=== PATIENT | female | born 1950 | race Caucasian/White ===

== ENCOUNTER 2024-10-30 05:19 | Emergency (ER) | payer MEDICARE, BC, SELFPAY ==
[2024-10-30 05:24] VITALS: BP 182/69; BMI 40.9
[2024-10-30 05:50] LABS: Hematocrit 29.1 % (37.0-47.0); Hemoglobin 9.5 g/dL (12.0-16.0); Mean Corp Hgb Conc. 32.6 g/dL (33.0-37.0); Mean Corpuscular Volume 88.4 fL (81.0-99.0); Nucleated Red Blood Cells % 0 %; Platelet Count 353 10^3/uL (130-400); Red Cell Dist. Width 13.2 % (11.5-14.5)
[2024-10-30 06:00] VITALS: BP 177/66
[2024-10-30 06:25] LABS: ALT (SGPT) 15 U/L (0-35); AST (SGOT) 18 U/L (14-36); Albumin 3.4 g/dl (3.5-5.0); Alkaline Phosphatase 69 U/L (38-126); Blood Urea Nitrogen 16 mg/dl (7-17); Calcium 9.2 mg/dl (8.4-10.2); Carbon Dioxide 33 mmol/L (22-30); Chloride 99 mmol/L (98-107); Estimated Creatinine Clearance 97 ml/min; Glucose 170 mg/dl (70-99); Potassium 3.4 mmol/L (3.5-5.1); Sodium 137 mmol/L (135-145); Total Protein 6.0 g/dl (6.3-8.2); eGFR > 60.00
[2024-10-30 06:27] LABS: Troponin I < 0.012 ng/ml
[2024-10-30 07:00] VITALS: BP 181/57
[2024-10-30 07:24] LABS: D-Dimer 2.56 ug/mlFEU (0.00-0.50)
[2024-10-30 07:48] VITALS: BP 181/67
[2024-10-30 08:34] VITALS: BP 177/60
--- NOTE | 2024-10-30 08:42 | ED.GENMED ---
History of Present Illness
General
Chief Complaint: Cardiac Symptoms
Source: patient
Time Seen by Provider: 10/30/24 06:04
History of Present Illness
History of Present Illness:
Note:
CHIEF COMPLAINT(S)
Pain in the left shoulder blade, feeling out of sync with heart rhythm.
HISTORY OF PRESENT ILLNESS
The patient is a female with a history of atrial fibrillation and cardiovascular stents placed in 2002, who presents with pain in the left shoulder blade that began the day before presentation. The patient describes the pain as constant and
associates it with mild shortness of breath. The pain persisted through the afternoon and subsided to some extent after the patient slept from approximately 10:00 PM to 3:00 AM. Although no specific activity seems to exacerbate the pain, she reports
the experience of being out of sync with her usual heart rhythm, particularly with exertion. The patient expresses concern about the risk of stroke, given her medical history. She is adherent to her anticoagulation regimen with apixaban, resuming
the regular 5 mg dosing subsequent to a brief pause for knee surgery occurring on the of this month.
ADDITIONAL HISTORY OBTAINED FROM SOURCES OTHER THAN THE PATIENT
According to external sources, it was noted that the patient does not appear to be in atrial fibrillation during this examination. Postoperatively, she was advised on using apixaban, although there was some concern about being off her blood thinner
briefly around the time of surgery.
PAST MEDICAL AND SURGICAL HISTORY
The patient has a history of atrial fibrillation, previous stent placements in 2002, and aortic stenosis. The recent surgical history includes right knee surgery conducted approximately 10 days ago with a dressing that appears well intact and no
signs of infection or excessive swelling.
CHRONIC MEDICAL CONDITIONS SIGNIFICANTLY AFFECTING CARE
- Atrial fibrillation
- Aortic stenosis
ALLERGIES
- Penicillin
- Adhesive tape
- Sulfamethoxazole-trimethoprim (Bactrim)
SOCIAL HISTORY
The patient mentions a history of weight loss contributing positively to her shortness of breath.
MEDICATIONS
Apixaban 5 mg for anticoagulation following atrial fibrillation management.
REVIEW OF SYSTEMS
Musculoskeletal:
- Pain in the left shoulder blade
Respiratory:
- Mild shortness of breath associated with pain
Cardiovascular:
- Feels out of sync with heart rhythm with exertion
PHYSICAL EXAM
General: Alert, no acute distress.
Skin: Warm, dry.
Head: Normocephalic, atraumatic.
Neck: Supple, trachea midline.
Eyes, Ears, Nose, Mouth, and Throat: Oral mucosa moist. Loud heart murmur noted.
Cardiovascular: Regular rhythm, loud heart murmur present. No peripheral edema.
Respiratory: Lungs clear to auscultation. Respirations are non-labored.
Gastrointestinal: Abdomen nondistended.
Back: Normal range of motion, Normal alignment.
Musculoskeletal: Postoperative wound at the right knee with the dressing intact, no signs of infection. Some edema noted at the surgical site compared to the left LE.
Neurological: Alert and oriented to person, place, and time, No focal neurological deficit observed.
Psychiatric: Cooperative, appropriate mood & affect.
PROBLEM LIST
Acute:
- Left shoulder blade pain with associated dyspnea
- Postoperative management following recent knee surgery
Chronic:
- Atrial fibrillation
- Aortic stenosis
PLAN
- Blood work to evaluate for possible blood clot given recent orthopedic surgery and previous brief interruption in anticoagulation.
- Imaging of the chest to assess potential cardiopulmonary causes.
- Monitor cardiac rhythm for atrial fibrillation reassurance.
- Continue current anticoagulation management with apixaban.
DIFFERENTIAL DIAGNOSIS
The Differential Diagnosis includes, in no particular order and is not limited to:
- Musculoskeletal pain
- Pulmonary embolism
- Cardiac ischemia
- Aortic dissection
- Costochondritis
- Pneumonia
- Pleural effusion
- Pericarditis
- Anxiety disorder
- Gastroesophageal reflux disease (GERD)
EKG
My independent EKG interpretation is:
- Time of EKG: Not specified
- Rhythm: Normal
- Heart Rate: 75 bpm
- Ryan: Left axis deviation
- Notable Intervals: Not specified
- Abnormalities: Nonspecific ST-T wave changes
- No Q waves, ischemic or other changes
Disposition:
SUMMARY OF ENCOUNTER
The patient is a 74-year-old female who presented with left scapular pain persisting for the last two to three days. The patient had recent total knee replacement surgery on October 20 and has resumed full-dose apixaban therapy. Laboratory studies
revealed an elevated D-dimer and a mild anemia with hemoglobin at 9.5 g/dL. The patient also has mild hypokalemia at 3.4 mEq/L, but normal renal function. Troponin levels were negative, and chest CT angiogram showed no evidence of pulmonary
embolism, although severe coronary calcifications were noted by radiology. EKG demonstrated normal sinus rhythm with nonspecific changes. Given the negative troponin and EKG findings, acute coronary syndrome was considered unlikely. The patients
anticoagulation therapy with apixaban was deemed appropriate, and she was cleared for discharge with recommendations for follow-up.
ASSESSMENT
The patient has a history of left scapular pain, which is unlikely to be acute coronary syndrome given the negative troponin and EKG findings. She is at low risk for pulmonary embolism based on the chest CT angiogram results.
PLAN
- Continue anticoagulation management with apixaban 5 mg orally twice daily.
- Address any contributing factors to scapular pain, likely musculoskeletal in origin unless other symptoms develop.
- Ensure potassium levels are managed appropriately.
- Provide reassurance regarding her cardiovascular status given current negative troponin results and no evidence of acute issues on imaging.
INDEPENDENT REVIEW OF LABS AND INTERPRETATION OF TESTS
My independent review of CBC indicates mild anemia with hemoglobin at 9.5 g/dL.
My independent review of the chemistry panel indicates mild hypokalemia at 3.4 mEq/L with normal renal function.
My independent review of the troponin is negative.
My independent chest CT angiogram interpretation shows no evidence of pulmonary embolism but notes severe coronary calcifications as reported by radiology.
My independent EKG interpretation is normal sinus rhythm with nonspecific ST-T wave changes.
PATIENT EDUCATION AND COUNSELING
The patient was educated about the likely musculoskeletal nature of her scapular pain and reassured of the normal cardiovascular assessment based on recent tests. She was advised on the importance of continued apixaban therapy and monitoring for any
new or worsening symptoms.
FOLLOW-UP INSTRUCTIONS
The patient is advised to follow up with her primary care physician or analytic programmer for ongoing management and monitoring of her condition.
MEDICATION RECONCILIATION
- Continue apixaban 5 mg orally twice daily for anticoagulation.
MEDICAL DECISION MAKING
- Complexity of Data Reviewed: Chronic conditions affecting care include atrial fibrillation and aortic stenosis. Differential diagnosis considered includes musculoskeletal pain, pulmonary embolism, cardiac ischemia, aortic dissection,
costochondritis, pneumonia, pleural effusion, pericarditis, anxiety disorder, and gastroesophageal reflux disease (GERD).
- Data:
Category 1
Lab tests reviewed: CBC indicating mild anemia, chemistry panel indicating mild hypokalemia, negative troponin.
Clinical information was obtained from an independent historian, confirming adherence to anticoagulation therapy.
Category 2
My independent interpretation of the chest CT angiogram showed no pulmonary embolism and radiology reported severe coronary calcifications. EKG interpretation showed normal sinus rhythm with nonspecific changes.
-Risk:
Consideration of Admission/Observation: Escalation of care including admission/observation was considered given the complexity and risk of the patients presenting complaint, exam findings, and her underlying comorbidities. However, ultimately I feel
the patient is safe for outpatient management with close follow-up. Reasoning: Work-up reassuring, does not reveal any acute life/organ-threatening processes, patients symptoms well-controlled upon reevaluation, reexamination is reassuring, vitals
are stable, patient agreeable with discharge, reliable for follow-up.
DIAGNOSIS
- Musculoskeletal pain (ICD-10: M79.89)
- Mild anemia (ICD-10: D64.9)
- Mild hypokalemia (ICD-10: E87.6)
- Severe coronary artery calcification (ICD-10: I25.10)
Phy Exam
Physical Exam
Physical Exam:
.
Course
Orders/Labs/Results
Orders:
Orders
10/30/24 05:36
EKG [Electrocardiogram (*1)] Urgent
Reason for Study: Palpitations
Other Reason for Exam: l scapular pain
10/30/24 05:37
EKG- Treatment ONCE
10/30/24 05:39
Complete Blood Count/With Diff Urgent
Comprehensive Metabolic Panel Urgent
Troponin I Urgent
10/30/24 06:25
DDimer [D-Dimer] Urgent
10/30/24 07:47
CT Chest PE Study Urgent
Comment:
Reason For Exam: scapular pain, recent TKR, ddimer elevated
Abnormal Lab Results
10/30/24 10/30/24
05:39 06:25
RBC 3.29 L 10^6/uL
(4.20-5.40)
Hgb 9.5 L g/dL
(12.0-16.0)
Hct 29.1 L %
(37.0-47.0)
MCHC 32.6 L g/dL
(33.0-37.0)
D-Dimer 2.56 H ug/mlFEU
(0.00-0.50)
Potassium 3.4 L mmol/L
(3.5-5.1)
Carbon Dioxide 33 H mmol/L
(22-30)
Creatinine 0.5 L mg/dL
(0.6-1.0)
Glucose 170 H mg/dl
(70-99)
Total Protein 6.0 L g/dl
(6.3-8.2)
Albumin 3.4 L g/dl
(3.5-5.0)
10/30/24 05:39
10/30/24 05:39
Vital Signs
Initial and Last Documented VS:
Initial Vital Signs
Temp Pulse Resp BP Pulse Ox
97.8 F 76 18 182/69 99
08/22/25 05:24 10/30/24 05:24 10/30/24 05:24 10/30/24 05:24 10/30/24 05:24
Last Documented Vital Signs
Temp Pulse Resp BP Pulse Ox
97.8 F 69 15 177/60 96
10/30/24 05:24 10/30/24 07:48 10/30/24 07:48 10/30/24 08:34 10/30/24 08:42
*Pulse Oximetry
SaO2: 96
Oxygen Mode of Delivery: Room air
Patient hypoxic: no
*Critical Care Note
Total Time (30-74mins, 75-104mins- exclusive of procedures): Not Applicable
ED Attending Note
-
Portions of this chart may have been created with voice recognition software.� Occasional wrong word or��sound alike� substitutions may have occurred due to the inherent limitations of voice recognition software.
Discharge Plan
Departure
Patient Disposition: Home (Routine Discharge)
Date of Disposition: 10/30/24
Time of Disposition: 08:42
Patient with high blood pressure during this ER visit?: Yes
Discharge Problem:
Back pain
Instructions: Back Pain, BLOOD PRESSURE
Prescriptions:
No Action
celecoxib [Celebrex] 200 mg Capsule
200 mg PO BID PRN (Reason: arthritis pain)
furosemide [Lasix] 40 mg Tablet
40 mg PO DAILY
nadolol 20 mg Tablet
20 mg PO DAILY
insulin aspart U-100 [Novolog U-100 Insulin aspart] 100 unit/mL Solution
10 unit SC . DIRECTED
montelukast 10 mg Tablet
10 mg PO DAILY
losartan 100 mg Tablet
100 mg PO DAILY
vitamin B complex Capsule
1 cap PO DAILY
ezetimibe-simvastatin [Vytorin 10-20] 10-20 mg Tablet
1 tab PO DAILY
insulin glargine [Lantus Solostar U-100 Insulin] 100 unit/mL (3 mL) Insulin Pen
30 unit SC QPM
Eliquis 5 mg Tablet
5 mg PO BID
Rx Instructions:
every other day
Ozempic 0.25 mg or 0.5 mg(2 mg/1.5 mL) Pen Injector
0.1 mg SC QWEEK
aspirin 81 mg Capsule
81 mg PO DAILY
Vitamin D (with calcium)
2,000 units PO DAILY
Women's One Daily
1 tab PO DAILY
Referrals:
Oz Bautista DO [Family Provider, Internal Medicine]
Activity Restrictions/Additional Instructions:
Please rest and see your doctor in the next 2 to 3 days for follow-up and reevaluation. Return immediately for shortness of breath, worsening pain, fevers, chest pain or any other concerns. Please have your doctor or analytic programmer follow-up on your
CT scan results to evaluate whether further workup is necessary.
Interventions
Interventions:
*Risk Screen - Suicide Last Done: 10/30/24 05:24
*General Assessment Last Done: 10/30/24 05:24
*Neglect/Abuse Screening Last Done: 10/30/24 05:24
*ED- Fall Risk Assessment Last Done: 10/30/24 05:24
*ED COVID-19 Vaccine History Last Done: 10/30/24 05:24
*Nursing Disposition Last Done: 10/30/24 09:20
ED- Pulmonary Assessment Last Done: 10/30/24 07:47
ED- Cardiac Assessment Last Done: 10/30/24 07:47
Discharge Date and Time
Discharge Date/Time: 10/30/24 09:45
Print Language: MAORI
== END 2024-10-30 09:45 | disposition home or self-care (01) ==
LOC: EMR 05:19
PROVIDERS: Emergency Medicine; EMERGENCY PHYSICIAN Emergency Medicine; FAMILY PHYSICIAN Internal Medicine
DX: M79.18 Myalgia, other site (principal); M54.9 Dorsalgia, unspecified; D64.9 Anemia, unspecified; E87.6 Hypokalemia; I25.10 Atherosclerotic heart disease of native coronary artery without angina pectoris; I48.91 Unspecified atrial fibrillation; I35.0 Nonrheumatic aortic (valve) stenosis; Z79.01 Long term (current) use of anticoagulants; Z88.0 Allergy status to penicillin; Z88.1 Allergy status to other antibiotic agents
CPT/HCPCS: 99284; 71275; 80053; 84484; 85025; 85379; 93005; Q9967